=== PATIENT | female | born 1940 | race Caucasian/White ===

== ENCOUNTER → 2016-09-15 | Outpatient (CLI) | payer MEDICARE, OTHER | END | disposition home or self-care (01) | LOC: PF 10:56 | PROVIDERS: ATTEND Internal Medicine Pulmonary Disease | DX: R06.02 Shortness of breath (principal) | CPT/HCPCS: 94060; 94620 ==

== ENCOUNTER → 2017-05-27 | Outpatient (CLI) | payer MEDICARE, OTHER | END | disposition home or self-care (01) | LOC: US 13:45 | DX: I83.812 Varicose veins of left lower extremity with pain (principal); M79.89 Other specified soft tissue disorders | CPT/HCPCS: 93971 ==

== ENCOUNTER → 2018-01-10 | Outpatient (CLI) | payer MEDICARE, OTHER ==
--- NOTE | 2018-01-10 12:03 | KCIC ---
CT CHEST WO CONTRAST Indication: Fibrosis, COPD, smoker for 30 years, on oxygen, wheezing, difficulty breathing Technique: Noncontrast CT imaging was performed of the chest, multiplanar reconstruction images submitted. One or more of the following individualized dose reduction techniques were utilized for this examination: 1. Automated exposure control 2. Adjustment of the mA and/or kV according to patient size 3. Use of iterative reconstruction technique. Comparison: None Findings: There is prominent coronary calcification. There is dilatation of the ascending thoracic aorta, tubular ascending thoracic aorta about 4 cm, accurate evaluation of the aortic root somewhat limited due to artifact created by leads from electronic cardiac device. There is no pleural or pericardial effusion, lobar consolidation, or pneumothorax. Main pulmonary artery measures about 4 cm. No significantly enlarged nodes are identified of the chest. There are fat-containing Bochdalek hernias bilaterally. Major airways are patent. There is mosaic attenuation of the lung parenchyma bilaterally, some degree of centrilobular emphysema. There is a small approximate 4 mm subpleural right upper lobe nodule axial image 12 series 2, tiny 2 mm right upper lobe nodule axial image 14, subpleural 4 to 5 mm nodule right upper lobe axial image 21, 4 to 5 mm right lower lobe nodule axial image 24, subpleural left upper lobe nodule axial image 8 up to 5 to 6 mm, subpleural left lower lobe nodule 3 to 4 mm axial images 21. There is multilevel mild thoracic spondylosis. There is a left adrenal nodule about 18 mm, density measurements suggestive of adenoma -1 Hounsfield unit. There is a subtle focus of density of the mid right kidney laterally slightly hyperdense compared with adjacent renal parenchyma, not fully included although visualized portion about 9 mm. There is diverticulosis of the visualized colon. IMPRESSION: 1. There are small bilateral pulmonary nodules, largest 5 to 6 mm left upper lobe. As per revised Fleischner guidelines, optional [address] follow-up could be performed. There is nonspecific mosaic attenuation of the lung parenchyma bilaterally with some degree of centrilobular emphysema, no focal consolidation or pleural fluid. 2. There is left adrenal adenoma. 3. There is a small subtle hyperdense lesion of the visualized right kidney which is not fully included, otherwise difficult to characterize, may be a hemorrhagic or complex cyst. 4. There is coronary calcification. There is dilatation ascending thoracic aorta about 4 cm. Electronically signed by: Marco A Hector MD (01/10/2018 11:59 AM) [id number]
== END | disposition home or self-care (01) ==
LOC: KCIC CT 09:38
PROVIDERS: ATTEND Internal Medicine Pulmonary Disease
DX: J43.2 Centrilobular emphysema (principal); I25.10 Atherosclerotic heart disease of native coronary artery without angina pectoris; D35.02 Benign neoplasm of left adrenal gland; M47.894 Other spondylosis, thoracic region
CPT/HCPCS: 71250

== ENCOUNTER → 2018-02-14 | Outpatient (CLI) | payer MEDICARE, OTHER ==
--- NOTE | 2018-02-14 14:57 | KCIC ---
Indication: Postmenopausal screening for osteoporosis. COMPARISON: None available. Bone Density: -BMD: (g/cm2) - AP Spine Total (L1-L4).......... 1.067. - Total left Hip................. 0.835. T-Score: - AP Spine Total (L1-L4)......... 0.2. - Total left Hip................. -0.9. Z-Score: - AP Spine Total (L1-L4).......... 2.7. - Total left Hip................. 1.0. World Health Organization criteria for BMD interpretation classify patients as Normal (T-score at or above -1.0), Osteopenic (T-score between -1.0 and -2.5), or Osteoporotic (T-score at or below -2.5). Impression: 1. AP Spine Total L1-L4--- normal.. 2. Total left Hip--- normal. Electronically signed by: Omar Theodore MD (02/14/2018 2:54 PM) [place] [id number]
--- NOTE | 2018-02-14 17:40 | KCIC ---
Renal ultrasound 02/14/2018 CLINICAL HISTORY: Possible cyst seen involving the right kidney on a recent CT scan of the chest. TECHNIQUE: A real-time ultrasound examination of both kidneys and the urinary bladder was performed. Multiple images were obtained. FINDINGS: Comparison is made to the patient's CT scan of the chest dated 01/10/2018. Both kidneys are within normal limits in size. The right kidney measures 11.3 cm in length. The left kidney measures 11.1 cm in length. A 1.3 cm cyst is seen projecting laterally from the mid/lower pole the right kidney. This corresponds to the abnormality seen on the patient's CT scan. No additional abnormality of the right kidney is seen. No abnormality of the left kidney is noted. There is no evidence of hydronephrosis. The urinary bladder is slightly contracted. No abnormality is seen. IMPRESSION: 1.3 cm cyst is seen involving the right kidney which corresponds to the abnormality seen on the patient's CT scan. Electronically signed by: Imer Dupont MD (02/14/2018 5:36 PM) [place] [id number]
== END | disposition home or self-care (01) ==
LOC: KCIC US 10:32
PROVIDERS: ATTEND Internal Medicine
DX: Z13.820 Encounter for screening for osteoporosis (principal); N28.1 Cyst of kidney, acquired; Z78.0 Asymptomatic menopausal state
CPT/HCPCS: 76770; 77080

== ENCOUNTER → 2018-10-24 | Outpatient (CLI) | payer MEDICARE, OTHER ==
[~2018-10-24] MED LIST: ZOLPIDEM 5 MG TABLET. PO ONE
--- NOTE | 2018-10-25 12:41 | SLEEP ---
DATE OF STUDY: 10/24/2018 SLEEP STUDY ATTENDING PHYSICIAN: Effie Longoria MD REFERRING PHYSICIAN: Karly Ramirez MD The patient is 78 years old who weighs 193 pounds with a BMI of 34. The patient had previous sleep study and was found to have moderate JASMYN at an AHI of 18.4 per hour. However, optimal CPAP pressure was not achieved despite reaching 18 cm water. She was referred back for a BiPAP titration study. During the night study, the patient spent 383 minutes in bed and slept for 175 minutes with a low sleep efficiency of 46%. Sleep latency was prolonged at 185 minutes with an absent REM sleep. Overall, sleep architecture showed increased stage 1 and stage 2 sleep, normal slow wave and absent REM sleep. EKG monitoring revealed an average heart rate of 82 beats per minute, no sustained arrhythmias were observed. No PLMs observed. The patient was started on BiPAP at a pressure of 18/14 and titrated up to 22/18. It was a difficult titration study due to the fact that there was artifact in the EEG lead making it difficult to score the stages. At the final pressure, the patient slept for 64 minutes. The patient's AHI was reduced to 6 per hour, mostly from mask leak. The patient did have supine sleep throughout, but no REM sleep observed. The patient's oxygen saturations, however, fluctuated in the mid 80s with a lowest of 80%. The patient would benefit from oxygen as well. The patient uses a small size full face mask. IMPRESSION: 1. Moderate sleep apnea diagnosed by previous sleep study. 2. No clinically significant periodic limb movements. 3. 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 4. Nocturnal hypoxia, not completely eliminated with BiPAP. Would need supplemental oxygen. RECOMMENDATIONS: 1. BiPAP at 22/18 with 2 liters of supplemental oxygen should be used on a nightly basis. 2. Follow up in 4-6 weeks to assess compliance with BiPAP and to document clinical improvement. 3. Weight loss is advised. 4. Avoid [employer] depressants. 5. Caution regarding driving until symptoms of sleep apnea resolve with the use of BiPAP. 6. The patient should also be ruled out for any cardiac or pulmonary conditions contributing to nocturnal hypoxia. 7. If the patient's insomnia persists despite effective use of BiPAP then it should be further evaluated and treated according to the etiology. THERON BURNHAM MD DR: CA/vani JOB#: [id number] / [id number] EFFIE Turner MD, SABATO MD
== END | disposition home or self-care (01) ==
LOC: RT 19:07
PROVIDERS: ATTEND Internal Medicine Pulmonary Disease
DX: G47.33 Obstructive sleep apnea (adult) (pediatric) (principal); G47.34 Idiopathic sleep related nonobstructive alveolar hypoventilation
CPT/HCPCS: 95811

== ENCOUNTER → 2019-01-20 | Outpatient (CLI) | payer MEDICARE, OTHER ==
--- NOTE | 2019-01-21 08:59 | RAD ---
EXAM: CT OF THE CHEST WITHOUT CONTRAST. HISTORY: Lung nodules. TECHNIQUE: Computed tomography of the chest was performed without intravenous contrast. COMPARISON: 01/10/2018. FINDINGS: Images of the upper abdomen reveal changes of cholecystectomy. Thickening of the left adrenal gland measures 1.2 cm and is unchanged. It measures low attenuation consistent with an adenoma. There is moderate to severe colonic diverticulosis. Bone windows reveal no suspicious lesions. There are no pathologically enlarged mediastinal or axillary lymph nodes. There is no pleural or pericardial effusion. The heart is not enlarged. There are atherosclerotic calcifications of the coronary arteries. There are aortic valve calcifications. The ascending aorta measures 4.1 cm. The main pulmonary artery is enlarged at 4.1 cm. A left-sided pacemaker has its leads in the right atrium and right ventricle. Bilateral fat-containing Bochdalek hernias are moderate on the left and small on the right. Multiple pleural-based nodules on the right measure up to 6 x 4 mm laterally on image 20. There are several other smaller similar nodules on the right greater than left. None are new or changed. Bilateral mosaic attenuation is again noted. There is scarring in the lingula. A lung suture line is noted in the right middle lobe. IMPRESSION: 1. Multiple pleural-based nodules on the right are unchanged for at least one year and are most likely benign. Another follow-up in one year could be considered if there is persistent concern. 2. Mosaic attenuation is consistent with small airways disease. 3. Enlargement of the pulmonary arteries suggests pulmonary arterial hypertension. 4. Aortic valve calcifications. Correlate for aortic stenosis. 5. Bilateral fat-containing hernias. 6. Stable 1.2 cm left adrenal adenoma. *One or more of the following individualized dose reduction techniques were utilized for this examination: 1. Automated exposure control. 2. Adjustment of the mA and/or kV according to patient size. 3. Use of iterative reconstruction technique. Electronically signed by: Clementina Cuellar MD (01/21/2019 8:56 AM) [facility]
== END | disposition home or self-care (01) ==
LOC: CT 08:42
PROVIDERS: ATTEND Internal Medicine Pulmonary Disease
DX: R91.8 Other nonspecific abnormal finding of lung field (principal); I70.0 Atherosclerosis of aorta; I25.10 Atherosclerotic heart disease of native coronary artery without angina pectoris; D35.02 Benign neoplasm of left adrenal gland; K57.30 Diverticulosis of large intestine without perforation or abscess without bleeding; Z95.0 Presence of cardiac pacemaker
CPT/HCPCS: 71250